=== PATIENT | female | born 1980 ===

== ENCOUNTER 2021-02-20 19:36 | Outpatient (CLI) | payer SELFPAY ==
[2021-02-20] MEDS ORDERED: LACTATED RINGERS 1,000 ML IV ONE (21:30)
[2021-02-20] MEDS ORDERED: LACTATED RINGERS 1,000 ML ONE (21:32)
[2021-02-20] MEDS ORDERED: ACETAMINOPHEN 500 MG TAB PO ONE (21:40)
[2021-02-20 22:03] VITALS: BP 120/67
[2021-02-20 22:39] LABS: Bilirubin,Urine NEG (Negative); Blood,Urine NEG (Negative); Color,Urine Yellow (Yellow); Mucus,Urine FEW /HPF; RBC,Urine < 1.0 /HPF (0.0-6.0)
[2021-02-21] MEDS ORDERED: LACTATED RINGERS 1,000 ML ONE (00:41)
[2021-02-21] MEDS ORDERED: MORPHINE 4 MG/1 ML INJ IM ONE (01:42)
[2021-02-21] MEDS ORDERED: ONDANSETRON 4 MG/2 ML INJ IV ONE (01:43)
== END 2021-02-21 02:24 | disposition home or self-care (01) ==
LOC: TRG 19:36 → APU 19:51 → TRG 02-21 02:24
PROVIDERS: ATTEND Obstetrics & Gynecology
DX: O62.9 Abnormality of forces of labor, unspecified (principal); O09.523 Supervision of elderly multigravida, third trimester; Z3A.37 37 weeks gestation of pregnancy
CPT/HCPCS: 59025; 81001; 96360; 96372; 96374; J2270; J2405; J7120; 96361

== ENCOUNTER 2021-03-06 20:55 | Inpatient (IN) | payer OTHER ==
[~2021-03-06 20:55] MED LIST: OXYTOCIN DRIP 30,000 MILLIUNITS/500 ML BAG IV ONE
[2021-03-06] MEDS ORDERED: OXYTOCIN 10 UNIT/1 ML INJ ONE (20:57)
[2021-03-06] MEDS ORDERED: LIDOCAINE (2%) 20 MG/1 ML VIAL 20 ML MDV INFILTRATI ONE ×2 (21:37→22:59)
[2021-03-06] MEDS ORDERED: BUTORPHANOL 2 MG/1 ML INJ IM ONE (21:40)
--- NOTE | 2021-03-06 22:45 | History and Physical Report ---
History of Present Illness Date of examination: 03/06/21 Date of admission: 03/06/21 20:55 Chief complaint: vaginal delivery History of present illness: 41yo presents at 38w6d after precipitous delivery. Patient arrived via EMS. Initially with contractions resulting in delivery. Reports vaginal discomfort after delivery. Otherwise no complaints. Past History Past Medical History: no pertinent history Past Surgical History: no surgical history [employer]IST History: chlamydia, herpes Family/Genetic History: none Social history: no significant social history - Obstetrical History Expected Date of Delivery: 03/14/21 Actual Gestation: 38 Week(s) 6 Day(s) : 3 Para: 2 Medications and Allergies Allergies Allergy/AdvReac Type Severity Reaction Status Date / Time No Known Allergies Allergy Verified 02/20/21 21:35 Home Medications Medication Instructions Recorded Confirmed Last Taken Type Multivitamin Tablet 1 tab PO DAILY 02/20/21 02/20/21 02/19/21 History 2100 Review of Systems Genitourinary: vaginal bleeding, contractions - Physical Exam Breasts: Positive: deferred Cardiovascular: Regular rate Lungs: Positive: Clear to auscultation Abdomen: Positive: normal appearance Genitourinary (Female): Positive: normal external genitalia Vulva: both: laceration/episiotomy (2nd degree perineal laceration) Vagina: Positive: normal moisture Uterus: Positive: normal size Extremities: Positive: normal Results All other labs normal. Assessment and Plan Routine care - Patient Problems (1) Vaginal delivery Current Visit: Yes Status: Acute Plan to address problem: -precipitous delivery, placenta delivered spontaneously intact -proceed with routine care PNC: per [facility] -labs reviewed on chart -O+/HepB-HIV neg/Rub-I/RPRNR/GBSneg (2) Advanced maternal age (AMA) in Current Visit: Yes Status: Acute (3) Genital herpes Current Visit: Yes Status: Acute
[2021-03-06] MEDS ORDERED: ACETAMINOPHEN 325 MG TAB PO PRN ×2 (22:59→23:02)
[2021-03-06] MEDS ORDERED: OXYTOCIN 10 UNIT/1 ML INJ IM PRN (22:59)
[2021-03-06] MEDS ORDERED: TERBUTALINE 1 MG/1 ML INJ SUB-Q PRN (22:59)
[2021-03-06] MEDS ORDERED: ePHEDrine SULFATE 50 MG/1 ML INJ IV PRN (22:59)
[2021-03-06] MEDS ORDERED: MINERAL OIL 30 ML ORAL LIQD PO PRN (22:59)
--- NOTE | 2021-03-06 22:59 | Procedure Note ---
OB Delivery Note - Delivery Date of Delivery: 03/06/21 - Vaginal Delivery presentation: vertex Route of delivery: Delivery placenta: spontaneous Delivery laceration: 2nd degree Delivery repair: vicryl Anesthesia: local Delivery comments: Transport via EMS.Precipitous delivery of viable male in cephalic presentation prior to arrival. Weight 4013g, Apgars 7/8. Placenta delivered on arrival intact. 2nd degree perineal laceration repaired in running locked fashion using 2-0 vicryl. Anesthesia via lidocaine local injection. Excellent hemostasis obtained. Patient tolerated the procedure well. - Infant A at 1 minute: 7 at 5 minutes: 8 Infant Gender: Male
[2021-03-06] MEDS ORDERED: LACTATED RINGERS 1,000 ML IV SCH (23:00)
[2021-03-06] MEDS ORDERED: OXYTOCIN DRIP 30 UNITS/500 ML BAG IV SCH (23:00)
[2021-03-06] MEDS ORDERED: PROMETHAZINE 25 MG RECT SUPP PR PRN (23:02)
[2021-03-06] MEDS ORDERED: diphenhydrAMINE 25 MG CAP PO PRN (23:02)
[2021-03-06] MEDS ORDERED: oxyCODONE /ACETAMINOPHEN 5-325MG TAB PO PRN (23:02)
[2021-03-06] MEDS ORDERED: PROMETHAZINE 25 MG TAB PO PRN (23:02)
[2021-03-06] MEDS ORDERED: MAGNESIUM HYDROXIDE (MOM) ORAL LIQD UDC PO PRN (23:02)
[2021-03-06] MEDS ORDERED: WITCH HAZEL/ GLYCERIN PAD TP PRN (23:02)
[2021-03-06] MEDS ORDERED: ONDANSETRON 4 MG/2 ML INJ IV PRN (23:02)
[2021-03-06] MEDS ORDERED: LANOLIN/ZINC/DIMETHICONE (LANSINOH) 7 GM TP PRN (23:02)
[2021-03-07 00:08] LABS: Hematocrit 35.3 % (30.3-42.9); Hemoglobin 12.2 gm/dl (10.1-14.3); Mean Corpuscular HGB Conc 35 % (30-34); Mean Corpuscular Volume 89 fl (79-97); Platelet Count 240 K/mm3 (140-440); Red Blood Count 3.99 M/mm3 (3.65-5.03); Red Cell Distribution Width 14.9 % (13.2-15.2)
[2021-03-07] MEDS ORDERED: ePHEDrine SULFATE 50 MG/1 ML INJ IV PRN (00:18)
[2021-03-07] MEDS ORDERED: LIDOCAINE (2%) 20 MG/1 ML VIAL 20 ML MDV INFILTRATI ONE (00:18)
[2021-03-07] MEDS ORDERED: MINERAL OIL 30 ML ORAL LIQD PO PRN (00:18)
[2021-03-07] MEDS ORDERED: TERBUTALINE 1 MG/1 ML INJ SUB-Q PRN (00:18)
[2021-03-07] MEDS ORDERED: BUTORPHANOL 2 MG/1 ML INJ ONE (00:23)
[2021-03-07] MEDS ORDERED: LACTATED RINGERS 1,000 ML IV SCH (00:30)
[2021-03-07] MEDS: IBUPROFEN 600 MG TAB PO SCH ×3 (00:30→17:10)
[2021-03-07] MEDS ORDERED: OXYTOCIN DRIP 30 UNITS/500 ML BAG IV SCH (01:00)
[2021-03-07] MEDS: oxyCODONE /ACETAMINOPHEN 5-325MG TAB PO PRN (05:44)
--- NOTE | 2021-03-07 07:49 | Progress Note ---
Assessment and Plan - Patient Problems (1) Vaginal delivery Current Visit: Yes Status: Acute Plan to address problem: will add toradol to pain regimen monitor symptoms closely Subjective - Subjective Date of service: 03/07/21 Interval history: Patient delivered in ambulance last night. Reports having uterine cramping not resolved with percocet and motrin. Lochia is controlled. Patient reports: appetite normal, voiding normally, pain poorly controlled : doing well Objective - Vital Signs Latest vital signs: Vital Signs Temp Pulse Resp BP Pulse Ox 03/07/21 04:30 98.8 F 76 16 125/78 03/07/21 01:53 98.3 F 114 H 20 130/63 97 03/07/21 00:30 16 03/06/21 23:48 98.4 F 88 16 128/62 Intake and Output 03/06/21 03/07/21 03/07/21 22:59 06:59 14:59 Output Total 300 Balance -300 Output: Urine 300 Void 300 Other: Total, Output Amount 300 Weight 90.718 kg 90.718 kg Estimated Blood Loss 300 - Labs Labs: Abnormal lab results 03/06/21 Range/Units 23:37 WBC 16.0 H (4.5-11.0) K/mm3 MCHC 35 H (30-34) %
[2021-03-07] MEDS ORDERED: KETOROLAC 60 MG/2 ML INJ IM SCH (08:00)
[2021-03-07] MEDS: PRENATAL VIT27-FE FUMARATE-FOLIC ACID VIT TAB PO SCH (11:23)
[2021-03-07] MEDS: DOCUSATE SODIUM 100 MG CAP PO SCH ×2 (11:23→22:34)
[2021-03-07 14:11] LABS: Hematocrit 34.4 % (30.3-42.9); Hemoglobin 11.7 gm/dl (10.1-14.3)
[2021-03-07] MEDS ORDERED: KETOROLAC 30 MG/1 ML INJ IV PRN (17:00)
[2021-03-08] MEDS: oxyCODONE /ACETAMINOPHEN 5-325MG TAB PO PRN (02:11)
[2021-03-08] MEDS: IBUPROFEN 600 MG TAB PO SCH (06:27)
--- NOTE | 2021-03-08 08:17 | Progress Note ---
Assessment and Plan - Patient Problems (1) Vaginal delivery Current Visit: Yes Status: Acute Plan to address problem: discharge home Subjective - Subjective Date of service: 03/08/21 Interval history: Patient has improvement in pain. Still having some uterine cramping improved with motrin Patient reports: appetite normal, voiding normally [place]: doing well Objective - Vital Signs Latest vital signs: Vital Signs Temp Pulse Resp BP BP Pulse Ox 03/08/21 01:26 97.5 F L 90 18 95/52 98 03/07/21 16:40 98.1 F 85 18 96/52 95 03/07/21 11:54 97.4 F L 92 H 17 90/51 96 03/07/21 08:47 96.4 F L 84 17 106/57 96 Intake and Output 03/07/21 03/08/21 03/08/21 22:59 06:59 14:59 Intake Total 360 500 Output Total 300 Balance 360 200 Intake: Intake, Free Water 360 500 Output: Urine 300 Void 300 Other: Total, Output Amount 300 # Voids Void 3 2 - Exam Uterus: Present: normal, firm
--- NOTE | 2021-03-08 08:18 | Discharge Summary ---
Providers - Providers Date of Admission: 03/06/21 20:55 Date of discharge: 03/08/21 Attending physician: SILVIA CAI MD Primary care physician: SILVIA CAI MD Hospitalization Reason for admission: active labor Delivery: Discharge diagnosis: IUP at term delivered Hospital course: Patient had delivery in ambulance. uncomplicated Condition at discharge: Good Disposition: DC-01 TO HOME OR SELFCARE - Discharge Diagnoses (1) Vaginal delivery Status: Acute Plan - Discharge Medications Prescriptions: Ibuprofen [Motrin] 800 mg PO Q8HR PRN #30 tablet PRN Reason: pain' HYDROcodone/APAP 5-325 [[place] 5/325] 1 each PO Q6HR PRN #20 tablet PRN Reason: Pain - Provider Discharge Summary Activity: no sex for 6 weeks, no heavy lifting 4 weeks, no strenuous exercise Diet: routine Instructions: routine Additional instructions: [] Smoking cessation referral if applicable(refer to patient education folder for contact #) [] Refer to [facility] Booklet Call your doctor immediately for: * Fever > 100.5 * Heavy vaginal bleeding ( >1 pad per hour) * Severe persistent headache * Shortness of breath * Reddened, hot, painful area to leg or breast * schedule visit in 4 weeks - Follow up plan
[2021-03-08] MEDS: PRENATAL VIT27-FE FUMARATE-FOLIC ACID VIT TAB PO SCH (09:54)
[2021-03-08] MEDS: DOCUSATE SODIUM 100 MG CAP PO SCH (09:54)
[2021-03-08 12:11] VITALS: BP 126/63
== END 2021-03-08 13:00 | disposition home or self-care (01) | DRG 769 ==
LOC: LD 20:55 → OB 03-07 00:40
PROVIDERS: ADMIT Obstetrics & Gynecology; ATTEND Obstetrics & Gynecology
PROC: 0KQM0ZZ Repair Perineum Muscle, Open Approach (ICD-10-PCS; principal; 2021-03-06)
DX: Z39.0 Encounter for care and examination of mother immediately after delivery (principal); O98.33 Other infections with a predominantly sexual mode of transmission complicating the puerperium; O62.3 Precipitate labor; A60.00 Herpesviral infection of urogenital system, unspecified; Z20.822 Contact with and (suspected) exposure to COVID-19; O70.1 Second degree perineal laceration during delivery
CPT/HCPCS: 36415; 85014; 85018; 85027; 86592; 86850; 86900; 86901; 96372; G0378; J1885; J2590; Q0169; U0003